=== PATIENT | female | born 1940 | race Caucasian/White ===

== ENCOUNTER 2017-11-28 07:43 | Day surgery (SDC) | payer MEDICARE, OTHER ==
[~2017-11-28] VITALS: Ht 162.6 cm; Wt 70.1 kg
[~2017-11-28 07:43] MED LIST: ASPI81CH; ATOR10; ATOR10 PO; BISO5; BISO5 PO; CYCL10 PO; HYDCHL12.5 PO; IBUP600 PO; LANS30EC PO; LOSHYD PO; ONDA4ODT MM; OXYACE5T PO; SUCR1 PO; Vitamin D2000 UNIT PO
[2017-11-28] MEDS ORDERED: ASPI81CH PO (08:31)
== END 2017-11-28 10:20 | disposition home or self-care (01) ==
LOC: ORSCSDS 07:43
PROVIDERS: Internal Medicine Gastroenterology
PROC: 0DB48ZX Excision of Esophagogastric Junction, Via Natural or Artificial Opening Endoscopic, Diagnostic (ICD-10-PCS; principal; 2017-11-28 09:00)
PROC: 0DBP8ZX Excision of Rectum, Via Natural or Artificial Opening Endoscopic, Diagnostic (ICD-10-PCS; principal; 2017-11-28 09:00)
DX: R19.5 Other fecal abnormalities (principal); K63.5 Polyp of colon; K57.30 Diverticulosis of large intestine without perforation or abscess without bleeding; K44.9 Diaphragmatic hernia without obstruction or gangrene; E78.5 Hyperlipidemia, unspecified; I10 Essential (primary) hypertension; K29.70 Gastritis, unspecified, without bleeding; K21.9 Gastro-esophageal reflux disease without esophagitis; Z86.010 Personal history of colon polyps; Z79.82 Long term (current) use of aspirin; Z79.899 Other long term (current) drug therapy
CPT/HCPCS: 87081; 88305; J0330; J1980; J2405; J7120

== ENCOUNTER → 2019-09-19 | Outpatient (CLI) | payer MEDICARE, OTHER ==
[~2019-09-19] MED LIST changes: +ASPI81CH PO
== END | disposition home or self-care (01) ==
LOC: LAB SHORT 17:39 → LAB EV 17:39
DX: N39.0 Urinary tract infection, site not specified (principal)
CPT/HCPCS: 87077; 87086; 87186

== ENCOUNTER 2021-08-05 16:31 | Inpatient (IN) | payer MEDICARE, OTHER ==
[~2021-08-05] VITALS: Ht 162.6 cm; Wt 69.8 kg
[~2021-08-05 16:31] MED LIST changes: +Bisoprolol Fuma10 MG PO
[2021-08-05] MEDS ORDERED: Crestor20 MG PO (16:39)
[2021-08-05 18:28] LABS: BASOPHILS ABSOLUTE AUTO 0.09 K/mm3 (0.00-0.23); BASOPHILS PERCENT AUTO 1 % (0-2); EOSINOPHILS ABSOLUTE AUTO 0.08 K/mm3 (0.00-0.68); EOSINOPHILS PERCENT AUTO 0 % (0-6); Hematocrit 46.1 % (33.0-51.0); Hemoglobin 15.2 g/dL (11.5-16.0); IMMATURE GRAN ABSOLUTE AUTO 0.19 K/mm3 (0.00-0.10); IMMATURE GRAN PERCENT AUTO 1 % (0-1); LYMPHOCYTES ABSOLUTE AUTO 1.45 K/mm3 (0.84-5.20); LYMPHOCYTES PERCENT AUTO 8 % (21-46); MONOCYTES ABSOLUTE AUTO 0.89 K/mm3 (0.16-1.47); MONOCYTES PERCENT AUTO 5 % (4-13); Mean Corpuscular HGB 29.9 pg (26.0-34.0); Mean Corpuscular Volume 91 fL (80-100); Mean Platelet Volume 11.1 fL (9.1-12.4); NEUTROPHILS ABSOLUTE AUTO 16.66 K/mm3 (1.96-9.15); NEUTROPHILS PERCENT AUTO 86 % (41-73); Platelet Count 264 K/mm3 (150-400); RDW Coefficient Variation 13.4 % (11.7-14.2); Red Blood Cell Count 5.08 M/mm3 (3.80-5.20); White Blood Cell Count 19.36 K/mm3 (4.00-11.30)
[2021-08-05 18:56] LABS: Bun/Creatinine Ratio 53.1 (12.0-20.0); Calcium, Blood 9.7 mg/dL (8.5-10.1); Creatinine, Blood 0.66 mg/dL (0.40-1.00); Potassium, Blood 3.4 mmol/L (3.5-5.5)
[2021-08-05 23:37] LABS: Source, Urine Voided
[2021-08-05 23:43] LABS: Bilirubin, Urine Neg (Neg); Blood, Urine 3+ (Neg); Color, Urine Yellow (P-Yellow); Glucose Qualitative, Urine Neg (Neg); Ketones, Urine 1+ (Neg); Leukocyte Esterase, Urine Neg (Neg); Nitrite, Urine Neg (Neg); Protein, Urine Neg (Neg); Urobilinogen, Urine NORM (Normal)
[2021-08-05 23:44] LABS: Appearance, Urine Clear (Clear)
[2021-08-05 23:51] LABS: Bacteria Not Seen /hpf; Red Blood Cells, Urine 0-2 /hpf (0-2); Squamous Epithelial Cells Rare /hpf (Few); White Blood Cells, Urine 0-2 /hpf (0-5)
--- NOTE | 2021-08-06 04:34 | NUR ---
PATIENT ADMITTED FROM ED IN STABLE CONDITION. LARGE BRUISE ON RIGHT SHOULDER BLADE AND BACK OF HER HEAD HAS A LARGE PUPLE LUMP. CHEST TUBE TO RIGHT ANTERIOR CHEST WALL. HOOKED TO 20CM OF SUCTION. NO CREPITUS OR AIR LEAK OVERNIGHT. NEURO CHECKS ARE NEGATIVE. VOIDING ON BS COMMODE. O2/2L NC. NO C/O PAIN OVERNIGHT.
[2021-08-06 05:25] LABS: BASOPHILS ABSOLUTE AUTO 0.05 K/mm3 (0.00-0.23); BASOPHILS PERCENT AUTO 0 % (0-2); EOSINOPHILS ABSOLUTE AUTO 0.16 K/mm3 (0.00-0.68); EOSINOPHILS PERCENT AUTO 1 % (0-6); Hematocrit 42.6 % (33.0-51.0); Hemoglobin 13.9 g/dL (11.5-16.0); IMMATURE GRAN ABSOLUTE AUTO 0.08 K/mm3 (0.00-0.10); IMMATURE GRAN PERCENT AUTO 1 % (0-1); LYMPHOCYTES ABSOLUTE AUTO 1.25 K/mm3 (0.84-5.20); LYMPHOCYTES PERCENT AUTO 9 % (21-46); MONOCYTES ABSOLUTE AUTO 0.74 K/mm3 (0.16-1.47); MONOCYTES PERCENT AUTO 6 % (4-13); Mean Corpuscular HGB 29.3 pg (26.0-34.0); Mean Corpuscular HGB Conc 32.6 g/dL (31.5-36.5); Mean Corpuscular Volume 90 fL (80-100); Mean Platelet Volume 11.1 fL (9.1-12.4); NEUTROPHILS ABSOLUTE AUTO 11.09 K/mm3 (1.96-9.15); NEUTROPHILS PERCENT AUTO 83 % (41-73); Platelet Count 225 K/mm3 (150-400); RDW Coefficient Variation 13.4 % (11.7-14.2); Red Blood Cell Count 4.74 M/mm3 (3.80-5.20); White Blood Cell Count 13.37 K/mm3 (4.00-11.30)
[2021-08-06 05:54] LABS: Calcium, Blood 8.9 mg/dL (8.5-10.1); Creatinine, Blood 0.58 mg/dL (0.40-1.00); Potassium, Blood 3.5 mmol/L (3.5-5.5)
--- NOTE | 2021-08-06 18:03 | NUR ---
PT IS A/OX4. PLEASANT AND COOPERATIVE. THE PT IS UP WITH MINIMAL ASSIST. PT HAS A THORO-VENT INPLACE SET UP TO CONTINUOUS SUCTION IN PLACE AND SECURE. PT APPEARS TO BE BREATHING EASILY ON RA AT THIS TIME. THE PT DENIES SOB AND REPORTS MINIMAL PAIN AT THIS TIME.NO NEURO DEFICTS NOTICED THIS SHIFT. CALL LIGHT IN REACH, WILL CONTINUE TO MONITOR AND ASSESS FOR CHANGES
--- NOTE | 2021-08-07 04:06 | NUR ---
PATIENT WITH VSS ON 2L/O2 NC OVERNIGHT. UP WITH SBA TO BEDSIDE COMMODE. CHEST TUBE PATENT, HOOKED TO 20CM SUCTION. SCANT AMOUNT OF BLOODY DRAINAGE. NO SIGNS OF AIR LEAK OR CREPITUS NOTED. PATIENT PASSED ALL NEURO CHECKS OVERNIGHT. nO ACUTE EVENTS THIS NIGHT.
--- NOTE | 2021-08-07 17:38 | NUR ---
PT IS A/OX4, PLEASANT AND COOPERATIVE. PT IS UP WITH MINIMAL ASSIST TO THE BATHROOM AND THE CHAIR. THE PTS CHEST TUBE WAS REMIVED TODAY BY DR. YEUNG. THE PT IS ON RA AT THIS TIME O2 SAT'S > 90%. PT DENIES ANY SOB. PT REPORTS MINIMAL PAIN. THE PT SHOWS NO NEURO DEFICTS. CALL LIGHT IN REACH. EXPECT DISCHARGE TOMORROW
--- NOTE | 2021-08-08 05:06 | NUR ---
SHIFT SUMMARY: THE PT IS A/OX4. SHE DOES USE THE CALL LIGHT WELL; SHE COULD BE INDEPENDENT, BUT SHE USED 1L OF O2 DURING THE NOC SHIFT AND WAS INSTRUCTED TO CALL BEFORE GETTING OOB. NO NEURO DEFICITS OR C/O PAIN THIS SHIFT. NO OTHER CHANGES TO REPORT AND WE'LL CONTINUE TO MONITOR.
--- NOTE | 2021-08-08 08:13 | NUR ---
pt sitting up in bed awake a/ox3, pleasant and cooperative with care, follows commands well, reports 5/10 pain to right chest and h/a, tylenol administered, lungs are clear in upper billy, a bit dim in bases, resp even and unlabored, no cough noted or reported, currently on 1 liter o2 for comfort, will trial on r/a at this time, on cont oximeter, hrr, no edema noted, ppp+2, cap refill <3sec, vs stable, afebrile, iv site is clear and patent, btx4, abd flat soft nontender, voids without diff, skin has a gooseegg bump to head and chest tube site to right anterior c.w. clear dressing in place, otherwise c/d/i, mi kennedy, call light in reach.
[2021-08-08] MEDS ORDERED: ACET325 PO (10:12)
--- NOTE | 2021-08-08 12:14 | NUR ---
pt has been discharged to home, went over discharge instructions with her, she verbalized understanding, iv removed intact, left via wheelchair with racebook writer and spouce with all belongings.
== END 2021-08-08 12:07 | disposition home or self-care (01) | DRG 964 ==
LOC: ER 16:31 → SURS 19:23 → MEDS 23:13
PROVIDERS: Physician Assistant; ADMIT Surgery
PROC: 0W9930Z Drainage of Right Pleural Cavity with Drainage Device, Percutaneous Approach (ICD-10-PCS; principal; 2021-08-05)
DX: S06.6X0A Traumatic subarachnoid hemorrhage without loss of consciousness, initial encounter (principal); S22.41XA Multiple fractures of ribs, right side, initial encounter for closed fracture; S27.0XXA Traumatic pneumothorax, initial encounter; D72.829 Elevated white blood cell count, unspecified; I10 Essential (primary) hypertension; E78.5 Hyperlipidemia, unspecified; Z88.8 Allergy status to other drugs, medicaments and biological substances; Z88.0 Allergy status to penicillin; Z88.2 Allergy status to sulfonamides; Z88.7 Allergy status to serum and vaccine; Z79.82 Long term (current) use of aspirin; Z79.899 Other long term (current) drug therapy; W10.8XXA Fall (on) (from) other stairs and steps, initial encounter
CPT/HCPCS: 32551; 36415; 70450; 71045; 71046; 72125; 80048; 81001; 82947; 85025; 85027; 92523; 94762; 97116; 97162; 97166; 97530; 97535; 99285-25; A9270

== ENCOUNTER → 2021-08-20 | Outpatient (CLI) | payer MEDICARE, OTHER ==
[~2021-08-20] MED LIST changes: +ACET325 PO; +Crestor20 MG PO
== END | disposition home or self-care (01) ==
LOC: LAB SHORT 10:05 → LAB 10:05
DX: N39.0 Urinary tract infection, site not specified (principal)
CPT/HCPCS: 87077; 87086; 87186

== ENCOUNTER 2023-12-01 06:45 | Day surgery (SDC) | payer MEDICARE, OTHER ==
[~2023-12-01] VITALS: Ht 162.6 cm; Wt 63.2 kg
[~2023-12-01 06:45] MED LIST changes: +Balanced Salt Epinephrine Irrigation Solution 500 mL IR SCH; +EZALLOR SPRINKLE5 MG PO; +HYDCHL25 PO; +Lidocaine HCl/Pf 1% 5 ML VIAL ONE; +Lidocaine HCl/Pf 1% 5 ML VIAL XX SCH; +Moxifloxacin HCL 0.5 MG/0.1 ML 0.4MLSYR RIGHTEYE SCH; +NS 500 ML IV ONE; +PHENYLEPHRINE\\TROPICAMIDE\\TETRACAINE OPHTHALMIC DILATING SOLN RIGHTEYE PRN; +Povidone-Iodine 450 DROP/30 ML Solution ONE; +Povidone-Iodine 450 DROP/30 ML Solution RIGHTEYE SCH; +Tetracaine HCl/Pf 0.5% Opth Soln 4 ml ONE; +Triamcinolone Inj Susp 40 MG / ML 1ML Vial INJ SCH; +Triamcinolone Inj Susp 40 MG / ML 1ML Vial ONE
[2023-12-01] MEDS ORDERED: EZETIMIBE10 M6 PO (07:12)
[2023-12-01] MEDS ORDERED: METFORMIN HCL500 M2 PO (07:12)
[2023-12-01] MEDS ORDERED: NS 500 ML IV ONE ×3 (07:25→07:26)
[2023-12-01] MEDS ORDERED: propofoL 20 ML IV ONE (07:43)
[2023-12-01] MEDS ORDERED: Midazolam HCl 1MG / ML 2ML Vial ONE (07:43)
[2023-12-01] MEDS ORDERED: FentaNYL Citrate 50 MCG/ML 2 ML Injection ONE (07:52)
[2023-12-01] MEDS ORDERED: Ondansetron HCl 2 MG / ML 2ML Vial ONE (07:53)
[2023-12-01 08:28] VITALS: BP 139/71
--- NOTE | 2023-12-01 08:52 | NUR ---
12/01/23 0852 Ruba Peña PT DRINKING WATER WITHOUT N/V. DROVE PT HOME. NO COMPLICATIONS OR COMPLAINTS
== END 2023-12-01 08:45 | disposition home or self-care (01) ==
LOC: ORSCSDS 06:45
PROVIDERS: Ophthalmology
PROC: 08RJ3JZ Replacement of Right Lens with Synthetic Substitute, Percutaneous Approach (ICD-10-PCS; principal; 2023-12-01 08:00)
DX: E11.36 Type 2 diabetes mellitus with diabetic cataract (principal); H25.813 Combined forms of age-related cataract, bilateral; I10 Essential (primary) hypertension; I48.91 Unspecified atrial fibrillation; Z79.899 Other long term (current) drug therapy
CPT/HCPCS: 82947; J2001; J2003; J2250; J2405; J2704; J3010; J3301; J7040; V2632

== ENCOUNTER 2023-12-08 07:41 | Day surgery (SDC) | payer MEDICARE, OTHER ==
[~2023-12-08] VITALS: Ht 162.6 cm; Wt 63.9 kg
[~2023-12-08 07:41] MED LIST changes: +EZETIMIBE10 M6 PO; +METFORMIN HCL500 M2 PO; +Moxifloxacin HCL 0.5 MG/0.1 ML 0.4MLSYR LEFTEYE SCH; -Moxifloxacin HCL 0.5 MG/0.1 ML 0.4MLSYR RIGHTEYE SCH; +PHENYLEPHRINE\\TROPICAMIDE\\TETRACAINE OPHTHALMIC DILATING SOLN LEFTEYE PRN; -PHENYLEPHRINE\\TROPICAMIDE\\TETRACAINE OPHTHALMIC DILATING SOLN RIGHTEYE PRN; +Povidone-Iodine 450 DROP/30 ML Solution LEFTEYE SCH; -Povidone-Iodine 450 DROP/30 ML Solution RIGHTEYE SCH
[2023-12-08] MEDS ORDERED: NS 500 ML IV ONE (08:07)
[2023-12-08] MEDS ORDERED: Midazolam HCl 1MG / ML 2ML Vial ONE (08:49)
[2023-12-08 10:09] VITALS: BP 119/95
== END 2023-12-08 09:25 | disposition home or self-care (01) ==
LOC: ORSCSDS 07:41
PROVIDERS: Ophthalmology
PROC: 08RK3JZ Replacement of Left Lens with Synthetic Substitute, Percutaneous Approach (ICD-10-PCS; principal; 2023-12-08 09:00)
DX: E11.36 Type 2 diabetes mellitus with diabetic cataract (principal); H25.812 Combined forms of age-related cataract, left eye; Z96.1 Presence of intraocular lens; I10 Essential (primary) hypertension; I48.91 Unspecified atrial fibrillation; G47.33 Obstructive sleep apnea (adult) (pediatric); Z79.84 Long term (current) use of oral hypoglycemic drugs; Z79.899 Other long term (current) drug therapy
CPT/HCPCS: 82947; J2001; J2003; J2250; J3301; J7040; V2632